=== PATIENT | male | born 1955 | race Caucasian/White ===

== ENCOUNTER → 2016-12-18 | Outpatient (CLI) | payer BC ==
[~2016-12-18] MED LIST: EC NAPROSYN500 MG PO; NAPROXEN SODIU500 MG PO
[2016-12-18 09:10] LABS: BUN 14 mg/dL (7-18)
[2016-12-18 09:11] LABS: GFR (ESTIMATED) 98 ML/MIN (>60)
[2016-12-19 16:35] LABS: HBsAg Screen Negative (Negative); Hep A Ab, IgM Negative (Negative); Hep B Core Ab, IgM Negative (Negative); Hep C Virus Ab >11.0 (0.0-0.9)
== END ==
LOC: LAB 07:32
PROVIDERS: Nurse Practitioner Family
DX: R25.1 Tremor, unspecified (principal); R74.8 Abnormal levels of other serum enzymes; R73.9 Hyperglycemia, unspecified